=== PATIENT | female | born 1960 | race Hispanic/Latino ===

== ENCOUNTER 2022-03-14 17:07 | Emergency (ER) | payer OTHER ==
[~2022-03-14] VITALS: Ht 144.8 cm; Wt 61.9 kg
[2022-03-14] MEDS ORDERED: AMLODIPINE BESY10 MG PO (17:26)
[2022-03-14] MEDS ORDERED: IBUPROFEN 600 MG TAB PO STA (17:36)
[2022-03-14] MEDS ORDERED: IBUPROFEN600 MG PO (17:39)
[2022-03-14] MEDS ORDERED: CEPHALEXIN500 MG PO (17:39)
[2022-03-14] MEDS ORDERED: BACTRIM DS TAB1 EACH PO (17:39)
[2022-03-14] MEDS ORDERED: CEFTRIAXONE 1 GM VIAL IM ONE (17:45)
[2022-03-14] MEDS ORDERED: IBUPROFEN 600 MG TAB ONE (17:56)
[2022-03-14] MEDS ORDERED: CEFTRIAXONE 1 GM VIAL ONE (17:56)
== END 2022-03-14 18:01 | disposition home or self-care (01) ==
LOC: FSED 17:11
DX: L03.011 Cellulitis of right finger (principal); I10 Essential (primary) hypertension; E66.9 Obesity, unspecified; Z98.84 Bariatric surgery status
CPT/HCPCS: 96372; 99283; J0696